=== PATIENT | male | born 1965 | race Hispanic/Latino ===

== ENCOUNTER 2017-09-19 06:49 | Emergency (ER) | payer BC, OTHER ==
[2017-09-19 07:14] LABS: APPEARANCE,URINE CLEAR (CLEAR); BILIRUBIN,URINE NEGATIVE (NEGATIVE); COLOR,URINE YELLOW (YELLOW); GLUCOSE, URINE (UA) NEGATIVE (NEGATIVE); KETONES,URINE NEGATIVE (NEGATIVE); LEUKOCYTE ESTERASE ,URINE NEGATIVE (NEGATIVE); NITRATE,URINE NEGATIVE (NEGATIVE); OCCULT BLOOD,URINE SMALL (NEGATIVE); PH,URINE 5.5 (5.0-8.0); PROTEIN,URINE NEGATIVE (NEGATIVE); UROBILINOGEN,URINE 0.2 mg/dL (0.2-1.0)
[2017-09-19 07:26] LABS: BASOPHILS % (AUTO) 0.8 % (0.0-5.0); EOSINOPHILS % (AUTO) 4.6 % (0.0-8.0); HEMATOCRIT 41.7 % (42-54); LYMPHOCYTES % (AUTO) 33.6 % (21.0-51.0); MEAN CORPUSCULAR HGB CONC 34.9 g/dL (32.0-36.0); MEAN CORPUSCULAR VOLUME 88.6 fL (79-99); MONOCYTES % (AUTO) 8.1 % (3.0-13.0); NEUTROPHILS % (AUTO) 52.9 % (40.0-77.0); PLATELET COUNT (AUTO) 182 K/uL (130-400); WHITE BLOOD COUNT (AUTO) 5.5 K/uL (4.8-10.8)
[2017-09-19] MEDS ORDERED: SODIUM CHLORIDE 0.9% 500ML 500 ML IV ONE (07:27)
[2017-09-19] MEDS ORDERED: ONDANSETRON HCL MDV 20ML 2 MG/ML VIAL ONE (07:27)
[2017-09-19] MEDS ORDERED: MORPHINE SULFATE 4 MG/1ML SYG ONE (07:27)
[2017-09-19 07:34] LABS: CREATININE 1.2 mg/dL (0.5-1.5); POTASSIUM 3.8 mmol/L (3.5-5.1)
[2017-09-19 07:39] LABS: ALBUMIN 3.8 g/dL (3.5-5.0); BILIRUBIN,TOTAL 0.2 mg/dL (0.2-1.0); TOTAL PROTEIN, SERUM 7.2 g/dL (6.0-8.3)
[2017-09-19] MEDS ORDERED: KETOROLAC TROMETHAMINE 30MG/ML ONE (07:40)
[2017-09-19 08:14] LABS: BACTERIA,URINE Rare /HPF (None Seen); MUCUS,URINE Few LPF (None Seen); SQUAMOUS EPITHELIAL CELL,UR Few /HPF (0-2); WBC,URINE 0-1 /HPF (0-1)
== END 2017-09-19 09:32 | disposition home or self-care (01) ==
LOC: EDH 06:49
DX: N20.2 Calculus of kidney with calculus of ureter (principal); M54.6 Pain in thoracic spine; I10 Essential (primary) hypertension; E07.9 Disorder of thyroid, unspecified; Z79.899 Other long term (current) drug therapy
CPT/HCPCS: 36415; 74176; 80053; 81001; 85025; 96361; 96374; 96375; 99285; J1885; J2270; J7040

== ENCOUNTER 2024-04-10 20:56 | Observation (INO) | payer BC, OTHER ==
[~2024-04-10] VITALS: Ht 165.1 cm; Wt 111.8 kg
[2024-04-10] MEDS: ondanSETRON 4MG INJ IVP ONE (21:39)
[2024-04-10 21:57] LABS: BASOPHILS # (AUTO) 0.03 K/uL (0.00-0.20); BASOPHILS % (AUTO) 0.4 % (0.0-5.0); EOSINOPHILS # (AUTO) 0.18 K/uL (0.00-0.70); EOSINOPHILS % (AUTO) 2.2 % (0.0-8.0); HEMATOCRIT 42.1 % (42-54); IMMATURE GRANULOCYTE ABSOLUTE 0.06 K/uL (0-1); LYMPHOCYTES # (AUTO) 0.5 K/uL (1.0-4.8); MEAN CORPUSCULAR HEMOGLOBIN 31.1 pg (27.0-33.0); MEAN CORPUSCULAR HGB CONC 34.2 g/dL (32.0-36.0); MEAN CORPUSCULAR VOLUME 90.9 fL (79-99); MONOCYTES # (AUTO) 0.8 K/uL (0.1-1.0); MONOCYTES % (AUTO) 9.4 % (3.0-13.0); NEUTROPHILS # (AUTO) 6.6 K/uL (1.8-7.7); NEUTROPHILS % (AUTO) 81.3 % (40.0-77.0); PLATELET COUNT (AUTO) 153 K/uL (130-400); RED BLOOD CELL COUNT(AUTO) 4.63 MIL/uL (4.50-6.20); RED CELL DISTRIBUTION WIDTH 12.6 % (11.0-15.5); WHITE BLOOD COUNT (AUTO) 8.1 K/uL (4.8-10.8)
[2024-04-10 22:06] LABS: APPEARANCE,URINE CLEAR (CLEAR); BILIRUBIN,URINE NEGATIVE (NEGATIVE); COLOR,URINE LIGHT-YELLOW (YELLOW); GLUCOSE, URINE (UA) NEGATIVE (NEGATIVE); KETONES,URINE NEGATIVE (NEGATIVE); LEUKOCYTE ESTERASE ,URINE NEGATIVE Leu/uL (NEGATIVE); NITRATE,URINE NEGATIVE (NEGATIVE); OCCULT BLOOD,URINE SMALL (NEGATIVE); PH,URINE 5.5 (5.0-8.0); PROTEIN,URINE 10 mg/dL (NEGATIVE); UROBILINOGEN,URINE 0.2 mg/dL (0.2-1.0)
[2024-04-10 22:09] LABS: ADD UA MICROSCOPIC YES
[2024-04-10 22:12] LABS: POTASSIUM 4.5 mmol/L (3.5-5.1)
[2024-04-10 22:13] LABS: MUCUS,URINE RARE LPF (None Seen); RBC,URINE 0-1 /HPF (0-1); SQUAMOUS EPITHELIAL CELL,UR RARE /HPF (0-2)
[2024-04-10 22:16] LABS: ALBUMIN 3.5 g/dL (3.5-5.0); BILIRUBIN,DIRECT 0.1 mg/dL (0.0-0.3); BILIRUBIN,TOTAL 0.4 mg/dL (0.2-1.0); TOTAL PROTEIN, SERUM 7.7 g/dL (6.0-8.3)
[2024-04-10] MEDS: 0.9%NACL 1000ML 1,000 ML IV SCH (23:59)
[2024-04-10] MEDS: LACTULOSE 20 GM/30 ML UDCUP PO ONE (23:59)
[2024-04-11] VITALS (9 sets, daily range): BP systolic 130–166; BP diastolic 69–106; PULSE 81–94; RESP 16–20; TEMP 98.5–99.4; O2SAT 95
[2024-04-11] MEDS: 0.9%NACL 1000ML 1,000 ML IV SCH (01:55)
[2024-04-11] MEDS: BisaCODYL 10 MG SUPP.RECT RC ONE (01:55)
[2024-04-11] MEDS ORDERED: ondanSETRON 4MG INJ IV PRN (02:00)
[2024-04-11] MEDS ORDERED: acetaMINOPHEN 325 MG TAB PO PRN (02:00)
[2024-04-11] MEDS ORDERED: LACTULOSE 20 GM/30 ML UDCUP PO PRN (02:00)
[2024-04-11] MEDS ORDERED: hydrALAZine 20MG/ML VIAL IV PRN (02:00)
[2024-04-11] MEDS: morPHINE 2 MG SYG IVP ONE (04:00)
[2024-04-11 06:07] LABS: BASOPHILS # (AUTO) 0.03 K/uL (0.00-0.20); BASOPHILS % (AUTO) 0.4 % (0.0-5.0); EOSINOPHILS # (AUTO) 0.01 K/uL (0.00-0.70); EOSINOPHILS % (AUTO) 0.1 % (0.0-8.0); IMMATURE GRANULOCYTE ABSOLUTE 0.04 K/uL (0-1); LYMPHOCYTES # (AUTO) 0.3 K/uL (1.0-4.8); LYMPHOCYTES % (AUTO) 3.4 % (21.0-51.0); MEAN CORPUSCULAR HEMOGLOBIN 30.5 pg (27.0-33.0); MEAN CORPUSCULAR HGB CONC 33.7 g/dL (32.0-36.0); MEAN CORPUSCULAR VOLUME 90.5 fL (79-99); MONOCYTES # (AUTO) 0.7 K/uL (0.1-1.0); MONOCYTES % (AUTO) 8.8 % (3.0-13.0); NEUTROPHILS # (AUTO) 6.7 K/uL (1.8-7.7); NEUTROPHILS % (AUTO) 86.8 % (40.0-77.0); PLATELET COUNT (AUTO) 165 K/uL (130-400); RED BLOOD CELL COUNT(AUTO) 4.53 MIL/uL (4.50-6.20); RED CELL DISTRIBUTION WIDTH 12.7 % (11.0-15.5); WHITE BLOOD COUNT (AUTO) 7.7 K/uL (4.8-10.8)
[2024-04-11 06:22] LABS: HEMOGLOBIN A1C 5.7 % (4.0-6.0)
[2024-04-11 06:27] LABS: ALBUMIN 3.6 g/dL (3.5-5.0); BILIRUBIN,TOTAL 0.4 mg/dL (0.2-1.0); CREATININE 1.8 mg/dL (0.5-1.3); MAGNESIUM 2.7 mg/dL (1.80-2.40); POTASSIUM 4.2 mmol/L (3.5-5.1); TOTAL PROTEIN, SERUM 7.5 g/dL (6.0-8.3)
[2024-04-11] MEDS: FAMOTIDINE 20MG VIAL IV SCH (08:14)
[2024-04-11] MEDS: acetaMINOPHEN 325 MG TAB PO PRN (08:15)
[2024-04-11] MEDS ORDERED: PoTASSium chloRIDE 20MEQ/100ML 100 ML IV PRN (08:30)
[2024-04-11] MEDS ORDERED: PoTASSium chloRIDE 20MEQ ER 20 MEQ ERTAB PO PRN (08:30)
[2024-04-11] MEDS ORDERED: PoTASSium chl 10% ELIXIR 20MEQ 20 MEQ/15 ML UDCUP PO PRN (08:30)
[2024-04-11] MEDS ORDERED: MAGNESIUM 2GM PREMIX 50ML 50 ML IV PRN (08:30)
[2024-04-11] MEDS ORDERED: ATOR20TA65 PO (09:15)
[2024-04-11] MEDS ORDERED: METO50TA18 PO (09:15)
[2024-04-11] MEDS ORDERED: ONDA-104 PO (09:15)
[2024-04-11] MEDS ORDERED: TAMS-1 PO (09:15)
[2024-04-11] MEDS ORDERED: ICOS1CAP2 PO (09:15)
[2024-04-11] MEDS ORDERED: THYR120T2 PO (09:15)
[2024-04-11] MEDS ORDERED: FOLI0.8C PO (09:15)
[2024-04-11] MEDS: 0.9% NACL 500ML IV.SOLN 500 ML IV ONE (13:10)
[2024-04-11 16:36] LABS: CREATININE 1.7 mg/dL (0.5-1.3); POTASSIUM 4.2 mmol/L (3.5-5.1)
[2024-04-11] MEDS: polyETHYLene GLYCol 3350 17 GM POWD.PACK PO SCH (20:24)
[2024-04-12 00:31] VITALS: BP 165/83; PULSE 79; RESP 18; TEMP 98.8
[2024-04-12 04:14] VITALS: BP 160/87; PULSE 85; RESP 18; TEMP 100.5
[2024-04-12 06:27] LABS: ALBUMIN 3.2 g/dL (3.5-5.0); BILIRUBIN,TOTAL 0.4 mg/dL (0.2-1.0); CREATININE 1.5 mg/dL (0.5-1.3); POTASSIUM 3.8 mmol/L (3.5-5.1)
[2024-04-12 08:00] VITALS: BP 132/65; PULSE 89; RESP 18; TEMP 100.6; O2SAT 98
[2024-04-12] MEDS ORDERED: atorVAStatin 20 MG TABLET PO SCH (21:00)
[2024-04-12] MEDS ORDERED: metoPROLOL tartRATE 50 MG TAB PO SCH (21:00)
[2024-04-13] MEDS ORDERED: FOLic ACID 1 MG TABLET PO SCH (09:00)
[2024-04-13] MEDS ORDERED: tamSULOsin HCL 0.4 MG CAP.ER.24H PO SCH (09:00)
== END 2024-04-12 11:55 | disposition home or self-care (01) ==
LOC: EDH 20:56 → EDHIP 04-11 01:35 → INTOOBSV 04-11 01:35 → 3AH 04-11 02:13
PROVIDERS: ADMIT Internal Medicine; ATTEND Internal Medicine
DX: R14.1 Gas pain (principal); K59.00 Constipation, unspecified; I48.91 Unspecified atrial fibrillation; I25.10 Atherosclerotic heart disease of native coronary artery without angina pectoris; I10 Essential (primary) hypertension; N13.2 Hydronephrosis with renal and ureteral calculous obstruction; E78.5 Hyperlipidemia, unspecified; E86.9 Volume depletion, unspecified; E66.01 Morbid (severe) obesity due to excess calories; K57.30 Diverticulosis of large intestine without perforation or abscess without bleeding; N17.9 Acute kidney failure, unspecified; Z79.899 Other long term (current) drug therapy; Z98.890 Other specified postprocedural states; Z68.41 Body mass index [BMI] 40.0-44.9, adult; Z87.442 Personal history of urinary calculi
CPT/HCPCS: 96374; 99285; 80076; 80048; 83690; 85025 ×2; 81001; 36415 ×3; 74018; 96361 ×2; 96375; 83036; 83735 ×3; 80053 ×2; 74176; 76770; 96376; J7030; J2405 ×2; G0378 ×19; J3490 ×2; J2270